=== PATIENT | male | born 1955 | race Caucasian/White ===

== ENCOUNTER 2016-08-01 05:13 | Emergency (ER) | payer MEDICAID, OTHER, SELFPAY ==
[2016-08-01] MEDS ORDERED: OMNIPAQUE 350 MG/ML, 100ML BOTTLE ONE (07:50)
[2016-08-04 11:56] LABS: ASPARTATE AMINO TRANSFERASE 12 U/L (15-37); BLOOD UREA NITROGEN 20 mg/dL (7-18)
[2016-08-04 11:57] LABS: IS PT STATUS REG ER OR PRE ER? YES
== END 2016-08-01 09:04 ==
LOC: ED 05:13
DX: K43.9 Ventral hernia without obstruction or gangrene (principal); J44.9 Chronic obstructive pulmonary disease, unspecified; E78.00 Pure hypercholesterolemia, unspecified; I11.9 Hypertensive heart disease without heart failure; Z87.891 Personal history of nicotine dependence
CPT/HCPCS: 36415; 74177; 80048; 80076; 82040; 83690; 84484; 85025; 93005; 99285; Q9967